=== PATIENT | female | born 1955 | race Two or more races ===

== ENCOUNTER 2016-07-29 10:21 | Emergency (ER) | payer BC, OTHER ==
[~2016-07-29] VITALS: Ht 162.6 cm; Wt 78.0 kg
[~2016-07-29 10:21] MED LIST: ACYC400T84; ESTR0.6256; FLUO20CA38; OMEP10CA2
[2016-07-29 10:30] VITALS: Ht 162.6 cm; Wt 78.0 kg
[2016-07-29] MEDS ORDERED: ONDANSETRON 4 MG INJ IV STA (10:47)
[2016-07-29] MEDS ORDERED: morphine 4 MG/ML VIAL IV STA (10:47)
[2016-07-29] MEDS ORDERED: SOD CHLORIDE 0.9% 500 ML IV STA (10:47)
[2016-07-29 11:17] LABS: ADD SCAN DIFF NO
[2016-07-29 11:19] LABS: BASOPHILS % 0.4 % (0.0-2.0); EOSINOPHILS # 0.2 10^3/ul (0.0-0.5); EOSINOPHILS % 1.8 % (0.0-7.0); HEMOGLOBIN 13.3 g/dl (12.0-16.0); LYMPHOCYTES # 2.8 10^3/ul (0.8-2.9); MEAN CORPUSCULAR HEMOGLOBIN 27.7 pg (29.0-33.0); MEAN CORPUSCULAR HGB CONC 32.4 g/dl (32.0-37.0); MEAN CORPUSCULAR VOLUME 85.2 fl (82.0-101.0); MEAN PLATELET VOLUME 9.8 fl (7.4-10.4); MONOCYTE # 0.5 10^3/ul (0.3-0.9); MONOCYTES % 6.4 % (0.0-11.0); NEUTROPHIL # 4.7 10^3/ul (1.6-7.5); NEUTROPHILS % 57.3 % (39.0-77.0); PLATELET COUNT 306 10^3/UL (140-415); RED BLOOD COUNT 4.81 10^6/ul (4.20-5.40); RED CELL DISTRIBUTION WIDTH 13.6 % (11.5-14.5); WHITE BLOOD COUNT 8.2 10^3/ul (4.8-10.8)
--- NOTE | 2016-07-29 11:50 | RADRPT ---
PROCEDURE: XR Chest. CLINICAL INDICATION: Abdominal Pain TECHNIQUE: Single frontal view of the chest was obtained. COMPARISON: None. FINDINGS: The heart and mediastinum are within normal limits. The lungs are clear. There is no significant pleural effusion or pneumothorax. IMPRESSION: No acute disease. RPTAT: EE Physician Dorothy Date Time Electronically viewed and signed by Jose E Lin Physician on 07/29/2016 11:47 RA/
[2016-07-29 12:01] LABS: ALBUMIN 4.4 g/dl (3.3-4.9); ALBUMIN/GLOBULIN RATIO 1.29; BILIRUBIN,INDIRECT 0.1 mg/dl (0-1.1); BILIRUBIN,TOTAL 0.1 mg/dl (0.2-1.3); CALCIUM 9.8 mg/dl (8.4-10.2); CREATININE 0.82 mg/dl (0.44-1.00); POTASSIUM 4.2 mmol/L (3.5-5.1); TOTAL PROTEIN 7.8 g/dl (6.1-8.1)
--- NOTE | 2016-07-29 12:47 | RADRPT ---
PROCEDURE: CT Abdomen and Pelvis without contrast. CLINICAL INDICATION: Abdominal pain TECHNIQUE: CT of the abdomen and pelvis was performed on a multi-detector scanner without IV contr ast. Coronal and sagittal images were reformatted from the axial data set. One or more of the foll owing dose reduction techniques were used: automated exposure control, adjustment of the mA and/or kV according to patient size, use of iterative reconstruction technique. CTDI = 18.19 mGy. DLP = 11 16.1 mGy-cm. COMPARISON: None. FINDINGS: CT abdomen: The lung bases are clear. The heart size is normal, without pericardial effusion. Coronary arteria l calcifications are noted. The liver is fatty infiltrated, without evidence of focal mass. Gallbl adder, biliary tree, pancreas, spleen, adrenal glands and kidneys are unremarkable. No urolithiasis or obstructive uropathy is identified. Small hiatal hernia is noted. The stomach is otherwise jennifer ssly unremarkable. The aorta is of normal caliber. Aortic atherosclerotic calcifications are noted. There is no retro peritoneal lymphadenopathy. The chloe hepatis region is clear. CT pelvis: No bowel obstruction, free intraperitoneal air or abscess is identified. The patient is status post sigmoid colon resection, with unremarkable appearance of the surgical staple line. The appendix is well visualized and normal. There is no diverticulosis, diverticulitis or colitis. Urinary bladde r is grossly unremarkable. Uterus is surgically absent. No pelvic mass, free fluid or lymphadenopa thy is identified. The surrounding osseous structures are remarkable for mild degenerative spondylosis of the spine. N o osteolytic or osteoblastic lesion is detected. IMPRESSION: 1. Hepatic steatosis is noted. 2. Small hiatal hernia is present. 3. The patient is status post sigmoid colon resection and hysterectomy. 4. Coronary arterial and aortic atherosclerotic calcifications are present. 5. No mass, lymphadenopathy, or focal acute inflammatory process is identified. RPTAT: HH .Nithin Wang MD, MD Date Time Electronically viewed and signed by .Nithin Wang MD, MD on 07/29/2016 12:46 .R/
[2016-07-29 13:21] LABS: ADD UMIC YES; URINE BILIRUBIN (Dip) NEGATIVE (NEGATIVE); URINE BLOOD (Dip) TRACE (NEGATIVE); URINE COLOR LT. YELLOW (YELLOW); URINE GLUCOSE (Dip) NEGATIVE (NEGATIVE); URINE KETONES (Dip) NEGATIVE (NEGATIVE); URINE LEUKOCYTE ESTERASE (Dip) NEGATIVE (NEGATIVE); URINE NITRITE (Dip) NEGATIVE (NEGATIVE); URINE TOTAL PROTEIN (Dip) NEGATIVE (NEGATIVE); URINE UROBILINOGEN (Dip) 0.2 E.U./dL (0.1-1.0)
[2016-07-29 14:04] LABS: BACTERIA,URINE RARE; URINE RBCS 0-2 /HPF (0)
[2016-07-29] MEDS ORDERED: TRAM50TA2 PO (14:45)
--- NOTE | 2016-07-29 14:51 | ERA ---
ER Documentation Chief Complaint Date/Time DATE: 07/29/16 TIME: 14:48 Chief Complaint ap x 5 days HPI This is a 60-year-old female with abdominal pain for 5 days. She said it is in her right lower quadrant. She called Dr. Mejias, who instructed to come to the ER for further evaluation. Mild to moderate and pain. Mild nausea. One episode of vomiting. Nonbilious. Nonbloody. No fevers no chills. No other current issues. ROS All systems reviewed and are negative except as per history of present illness. Medications Home Meds Active Scripts Tramadol HCl (Tramadol HCl) 50 Mg Tablet, 50 MG PO Q4 Y for PAIN, #20 TAB Prov:ASIM PRETTY 07/29/16 Reported Medications Omeprazole* (Prilosec*) 10 Mg Cap 05/27/09 Estrogens,Conjugated* (Premarin*) 0.625 Mg Tablet 05/27/09 Acyclovir* (Zovirax*) 400 Mg Tablet 05/27/09 Fluoxetine Hcl* (Prozac*) 20 Mg Capsule 05/27/09 Allergies Allergies: Coded Allergies: No Known Allergy (Verified Allergy, Mild, 05/27/09) PMhx/Soc History of Surgery: Yes (HYSTERECTOMY,ARTHROSCOPIC SURGERY,TONSILLECTOMY,EYE SUGERY,RECTAL FISSURE) Hx Neurological Disorder: No Hx Respiratory Disorders: No Hx Cardiac Disorders: No Hx Psychiatric Problems: No Hx Miscellaneous Medical Probl: Yes (diverticulitis) Hx Alcohol Use: No Hx Substance Use: No Hx Tobacco Use: No Smoking Status: Never smoker Physical Exam Vitals Vital Signs Date Time Temp Pulse Resp B/P Pulse Ox O2 Delivery O2 Flow Rate FiO2 07/29/16 10:30 99.0 87 18 129/71 99 Physical Exam Const: [] Head: Atraumatic Eyes: Normal Conjunctiva ENT: Normal External Ears, Nose and Mouth. Neck: Full range of motion..~ No meningismus. Resp: Clear to auscultation bilaterally Cardio: Regular rate and rhythm, no murmurs Abd: Soft, non tender, non distended. Normal bowel sounds Skin: No petechiae or rashes Back: No midline or flank tenderness Ext: No cyanosis, or edema Neur: Awake and alert Psych: Normal Mood and Affect Result Diagram: 07/29/16 1105 07/29/16 1105 Results 24 hrs Laboratory Tests Test 07/29/16 11:05 07/29/16 12:35 White Blood Count 8.210^3/ul Red Blood Count 4.8110^6/ul Hemoglobin 13.3g/dl Hematocrit 41.0% Mean Corpuscular Volume 85.2fl Mean Corpuscular Hemoglobin 27.7pg Mean Corpuscular Hemoglobin Concent 32.4g/dl Red Cell Distribution Width 13.6% Platelet Count 41267^3/UL Mean Platelet Volume 9.8fl Neutrophils % 57.3% Lymphocytes % 34.0% Monocytes % 6.4% Eosinophils % 1.8% Basophils % 0.4% Nucleated Red Blood Cells % 0.0/100WBC Neutrophils # 4.710^3/ul Lymphocytes # 2.810^3/ul Monocytes # 0.510^3/ul Eosinophils # 0.210^3/ul Basophils # 0.010^3/ul Nucleated Red Blood Cells # 0.010^3/ul Sodium Level 136mmol/L Potassium Level 4.2mmol/L Chloride Level 104mmol/L Carbon Dioxide Level 26mmol/L Anion Gap 10 Blood Urea Nitrogen 18mg/dl Creatinine 0.82mg/dl Glucose Level 94mg/dl Calcium Level 9.8mg/dl Total Bilirubin 0.1mg/dl Direct Bilirubin 0.00mg/dl Indirect Bilirubin 0.1mg/dl Aspartate Amino Transf (AST/SGOT) 25IU/L Alanine Aminotransferase (ALT/SGPT) 30IU/L Alkaline Phosphatase 84IU/L Total Protein 7.8g/dl Albumin 4.4g/dl Globulin 3.40g/dl Albumin/Globulin Ratio 1.29 Lipase 103U/L Urine Color LT. YELLOW Urine Clarity CLEAR Urine pH 5.5 Urine Specific Robinson <=1.005 Urine Ketones NEGATIVE Urine Nitrite NEGATIVE Urine Bilirubin NEGATIVE Urine Urobilinogen 0.2 E.U./dL Urine Leukocyte Esterase NEGATIVE Urine Microscopic RBC 0-2/HPF Urine Microscopic WBC NONE SEEN/HPF Urine Epithelial Cells OCCASIONAL Urine Bacteria RARE Urine Hemoglobin TRACE Urine Glucose NEGATIVE% Urine Total Protein NEGATIVE Current Medications Medications (Trade) Dose Ordered Sig/Ana Route PRN Reason Start Time Stop Time Status Last Admin Dose Admin Sodium Chloride (NS) 500 ml @ 500 mls/hr Q1H STAT IV 07/29/16 10:47 07/29/16 11:46 DC 07/29/16 11:02 Morphine Sulfate (morphine) 4 mg ONCE STAT IV 07/29/16 10:47 07/29/16 10:48 DC Ondansetron HCl (Zofran Inj) 4 mg ONCE STAT IV 07/29/16 10:47 07/29/16 10:48 DC 07/29/16 11:10 Procedures/MDM Medical decision-makin-year-old female with undifferentiated abdominal pain. CT is negative. Workup is essentially negative. Serial abdominal exams are stable. I spoke to Dr. Mejias, the patient's primary care physician. Patient will be discharged home follow-up with Dr. Mejias tomorrow. She is also been advised to return in 8 hours for serial abdominal exams here in the emergency department. Departure Diagnosis: Primary Impression: Abdominal pain Qualified Code: R10.31 - Right lower quadrant abdominal pain Condition: Stable Patient Instructions: Abdominal Pain Referrals: SERGIO GRIER MD (PCP) ASIM PRETTY July 29, 2016 14:51
[2016-07-29 14:59] VITALS: BP 113/65; PULSE 71; RESP 20; TEMP 97.4
== END 2016-07-29 15:14 | disposition home or self-care (01) ==
LOC: E/R 10:21
DX: R10.31 Right lower quadrant pain (principal); R11.2 Nausea with vomiting, unspecified
CPT/HCPCS: 36415; 71010; 74176; 80053; 81001; 83690; 85025; 87086; 96374; 99285; J2405; J7040; J2270

== ENCOUNTER 2016-08-06 19:50 | Emergency (ER) | payer BC ==
[~2016-08-06] VITALS: Ht 165.1 cm; Wt 84.0 kg
[~2016-08-06 19:50] MED LIST changes: +TRAM50TA2 PO
[2016-08-06 20:05] VITALS: Ht 165.1 cm; Wt 84.0 kg
[2016-08-06 21:03] LABS: URINE BLOOD (Dip) POC 1+ (NEGATIVE)
--- NOTE | 2016-08-06 21:08 | ERA ---
ER Documentation Chief Complaint Date/Time DATE: 08/06/16 TIME: 21:07 Chief Complaint Abdominal pain HPI The patient is a 60-year-old female, presenting to the ER because of persistent , intermittent suprapubic abdominal pain for 1 week. She was seen 1 week ago for similar symptoms, had negative abdominal pelvic CT. she followed-up with her physician Dr. Lawson who started her on Levaquin and Flagyl for the last 2 days. She spoke with her physician Dr. Lawson to the who sent her to the ER for repeat abdominal CT. The abdominal pain is intermittent, only occur when she stands up or walks. She denies fever, chills, chest pain, dyspnea, vomiting, dysuria, diarrhea. She does not smoke nor drink Past medical history: Hepatic steatosis, hiatal hernia, history of diverticulitis, dyslipidemia, depression Past surgical history: Hysterectomy, rectal, sigmoid resection 3 years ago due to diverticulitis ROS All systems reviewed and are negative except as per history of present illness. Medications Home Meds Reported Medications Sertraline Hcl* (Sertraline Hcl*) 50 Mg Tablet, 50 MG PO DAILY, #30 TAB 08/06/16 Levofloxacin* (Levofloxacin*) 500 Mg Tablet, 500 MG PO DAILY, TAB 08/06/16 Metronidazole* (Flagyl*) 500 Mg Tablet, 500 MG PO TID, TAB 08/06/16 Acyclovir* (Acyclovir*) 800 Mg Tablet, 800 MG PO DAILY, TAB 08/06/16 Discontinued Reported Medications Omeprazole* (Prilosec*) 10 Mg Cap 05/27/09 Estrogens,Conjugated* (Premarin*) 0.625 Mg Tablet 05/27/09 Acyclovir* (Zovirax*) 400 Mg Tablet 05/27/09 Fluoxetine Hcl* (Prozac*) 20 Mg Capsule 05/27/09 Discontinued Scripts Tramadol HCl (Tramadol HCl) 50 Mg Tablet, 50 MG PO Q4 Y for PAIN, #20 TAB Prov:ASIM PRETTY 07/29/16 Allergies Allergies: Coded Allergies: Penicillins (Unverified Allergy, Unknown, 08/06/16) Sulfa (Sulfonamide Antibiotics) (Unverified Allergy, Unknown, 08/06/16) PMhx/Soc History of Surgery: Yes (HYSTERECTOMY,ARTHROSCOPIC SURGERY,TONSILLECTOMY,EYE SUGERY,RECTAL FISSURE) Hx Neurological Disorder: No Hx Respiratory Disorders: No Hx Cardiac Disorders: No Hx Psychiatric Problems: No Hx Miscellaneous Medical Probl: Yes (diverticulitis) Hx Alcohol Use: No Hx Substance Use: No Hx Tobacco Use: No Smoking Status: Unknown if ever smoked Physical Exam Vitals Vital Signs Date Time Temp Pulse Resp B/P Pulse Ox O2 Delivery O2 Flow Rate FiO2 08/06/16 23:23 74 17 125/77 98 Room Air 08/06/16 21:16 98.8 70 17 133/73 98 Room Air 08/06/16 20:05 98.8 109 20 135/85 98 Physical Exam Const: No acute distress. Head: Atraumatic. Eyes: Normal Conjunctiva. ENT: Normal External Ears, Nose and Mouth. Neck: Full range of motion. No meningismus. Resp: Clear to auscultation bilaterally. Cardio: Regular rate and rhythm. Abd: Soft, non distended, normal bowel sounds, mild suprapubic tenderness, no rigidity, rebound, CVA tenderness Skin: No petechiae or rashes. Back: No midline or flank tenderness. Ext: No cyanosis, or edema. Neur: Awake and alert. No focal deficit Psych: Normal Mood and Affect. Result Diagram: 08/06/16205708/06/162057 Results 24 hrs Laboratory Tests Test 08/06/16 20:58 08/06/16 21:05 White Blood Count 9.310^3/ul Red Blood Count 5.1410^6/ul Hemoglobin 14.4g/dl Hematocrit 43.4% Mean Corpuscular Volume 84.4fl Mean Corpuscular Hemoglobin 28.0pg Mean Corpuscular Hemoglobin Concent 33.2g/dl Red Cell Distribution Width 13.3% Platelet Count 04075^3/UL Mean Platelet Volume 9.6fl Neutrophils % 52.1% Lymphocytes % 37.9% Monocytes % 8.0% Eosinophils % 1.1% Basophils % 0.6% Nucleated Red Blood Cells % 0.0/100WBC Neutrophils # 4.810^3/ul Lymphocytes # 3.510^3/ul Monocytes # 0.710^3/ul Eosinophils # 0.110^3/ul Basophils # 0.110^3/ul Nucleated Red Blood Cells # 0.010^3/ul Prothrombin Time 12.8Sec Prothrombin Time Ratio 1.0 INR International Normalized Ratio 0.96 Activated Partial Thromboplast Time 28.1Sec Sodium Level 142mmol/L Potassium Level 3.9mmol/L Chloride Level 102mmol/L Carbon Dioxide Level 27mmol/L Anion Gap 17 Blood Urea Nitrogen 15mg/dl Creatinine 1.00mg/dl Glucose Level 121mg/dl Calcium Level 10.6mg/dl Total Bilirubin 0.2mg/dl Direct Bilirubin 0.00mg/dl Indirect Bilirubin 0.2mg/dl Aspartate Amino Transf (AST/SGOT) 29IU/L Alanine Aminotransferase (ALT/SGPT) 35IU/L Alkaline Phosphatase 75IU/L Total Protein 8.1g/dl Albumin 4.9g/dl Globulin 3.20g/dl Albumin/Globulin Ratio 1.53 Lipase 81U/L Bedside Urine pH (LAB) 6.0 Bedside Urine Protein (LAB) Negative Bedside Urine Glucose (UA) Negative Bedside Urine Ketones (LAB) Negative Bedside Urine Blood 1+ Bedside Urine Nitrite (LAB) Negative Bedside Urine Leukocyte Esterase (L Trace Current Medications Medications (Trade) Dose Ordered Sig/Ana Route PRN Reason Start Time Stop Time Status Last Admin Dose Admin IV Flush 10 ml 10 ml STK-MED ONCE .ROUTE 08/06/16 22:35 08/06/16 22:36 DC 08/06/16 22:46 Sodium Chloride (NS) 100 ml @ ud STK-MED ONCE .ROUTE 08/06/16 22:35 08/06/16 22:36 DC 08/06/16 22:46 Iohexol (Omnipaque 300mg/ ml) 150 ml STK-MED ONCE .ROUTE 08/06/16 22:35 08/06/16 22:36 DC 08/06/16 22:46 Procedures/[place] [id number] Radiology Main Line: [phone] DIAGNOSTIC IMAGING REPORT Patient: SARTHAK MARES : 1955 Age: 60 Sex: F MR #: [id number] DOS: 08/06/162113 Ordering MD: CADENCE REA MD Location: E/R Room/Bed: PROCEDURE: CT abdomen and pelvis with contrast. CLINICAL INDICATION: Abdominal pain. TECHNIQUE: IV contrast enhanced CT examination of the abdomen and pelvis, with axial, sagittal and coronal reformatted images. 100 cc Isovue 300 nonionic IV contrast were employed. Automated dose exposure control was employed. CTDI: 17.16 mGy and DLP: 903.20 mGy-cm. COMPARISON: Noncontrast CT examination the abdomen and pelvis dated 07/29/2016. FINDINGS: CT abdomen: The lung bases are clear. The heart size is normal, without pericardial thickening or effusion. The liver demonstrates low post contrast attenuation compatible with fatty infiltration; and otherwise, the liver is normal in size and density without focal mass or intrahepatic biliary dilatation. The spleen is normal in size and homogeneous in density. The stomach is partially collapsed, but is grossly unremarkable. The pancreas as visualized is normal. The gallbladder and biliary tree are unremarkable and there is no evidence for biliary dilatation. The adrenal glands are symmetric and normal. The kidneys are symmetrically unremarkable as well. No renal calculus or obstructive uropathy or mass lesion is seen. The aorta is of normal caliber. No aortic vascular calcifications are present. 13 mm calcified splenic artery aneurysm. There is no retroperitoneal lymphadenopathy. The chloe hepatis region is clear. Mild solid stool scattered throughout the nondilated small bowel, without obstruction. Findings compatible with nonspecific mild small bowel motility disorder. CT pelvis: Mild solid stool scattered throughout the nondilated small bowel, without obstruction. Findings compatible with nonspecific mild small bowel motility disorder. The pelvic organs are normal. The pelvic sidewalls and inguinal regions are clear. The sigmoid colon and rectum are all unremarkable. No mass , lymphadenopathy, or free fluid is seen. No acute inflammation is seen. The appendix is unremarkable. The surrounding osseous structures are remarkable for mild degenerative spondylosis of the spine. No osteolytic or osteoblastic lesion is detected. IMPRESSION: 1. Nonspecific mild small bowel motility disorder, without obstruction. 2. Fatty infiltration of the liver. 3. 13 mm calcified splenic artery aneurysm. RPTAT: [facility] Physician Yanna Date Time Electronically viewed and signed by Physician Yanna on 08/06/2016 23:15 RS/ CC: CADENCE REA MD MEDICAL MAKING DECISION: The patient is a 60-year-old female, presenting with acute abdominal pain of unclear etiology. She declined any pain medication The differential diagnoses considered include but are not limited to cholelithiasis, cholecystitis, cystitis, pancreatitis, hepatitis, gastritis, peptic ulcer disease, gastric ulcer, appendicitis, diverticulitis, cholangitis, choledocholithiasis, partial small bowel obstruction. Consultation: I discussed the patient with Dr. Almeida was on-call for her physician Dr. Lawson at 11:30 PM, she was made aware of the lab, the treatment, the patient condition and agreed to discharge the patient. Departure Diagnosis: Primary Impression: Abdominal pain Condition: Good Comments I discussed the findings with the patient. I advised the patient to follow-up with the primary physician in about tomorrow morning and return if any concern. She declined any pain medication CADENCE REA MD Aug 06, 2016 21:08
[2016-08-06 21:16] VITALS: TEMP 98.8
[2016-08-06 21:20] LABS: ADD SCAN DIFF NO
[2016-08-06 21:25] LABS: BASOPHIL # 0.1 10^3/ul (0.0-0.1); BASOPHILS % 0.6 % (0.0-2.0); EOSINOPHILS # 0.1 10^3/ul (0.0-0.5); EOSINOPHILS % 1.1 % (0.0-7.0); HEMATOCRIT 43.4 % (37.0-47.0); HEMOGLOBIN 14.4 g/dl (12.0-16.0); LYMPHOCYTES # 3.5 10^3/ul (0.8-2.9); LYMPHOCYTES % 37.9 % (15.0-51.0); MEAN CORPUSCULAR HGB CONC 33.2 g/dl (32.0-37.0); MEAN CORPUSCULAR VOLUME 84.4 fl (82.0-101.0); MEAN PLATELET VOLUME 9.6 fl (7.4-10.4); MONOCYTE # 0.7 10^3/ul (0.3-0.9); NEUTROPHIL # 4.8 10^3/ul (1.6-7.5); NEUTROPHILS % 52.1 % (39.0-77.0); PLATELET COUNT 346 10^3/UL (140-415); RED BLOOD COUNT 5.14 10^6/ul (4.20-5.40); RED CELL DISTRIBUTION WIDTH 13.3 % (11.5-14.5); WHITE BLOOD COUNT 9.3 10^3/ul (4.8-10.8)
[2016-08-06 21:29] LABS: INR 0.96; PROTIME 12.8 Sec (12.2-14.2)
[2016-08-06 21:30] LABS: PARTIAL THROMBOPLASTIN TIME 28.1 Sec (25.0-35.0)
[2016-08-06 21:38] LABS: ALBUMIN 4.9 g/dl (3.3-4.9); ALBUMIN/GLOBULIN RATIO 1.53; BILIRUBIN,INDIRECT 0.2 mg/dl (0-1.1); BILIRUBIN,TOTAL 0.2 mg/dl (0.2-1.3); CALCIUM 10.6 mg/dl (8.4-10.2); POTASSIUM 3.9 mmol/L (3.5-5.1); TOTAL PROTEIN 8.1 g/dl (6.1-8.1)
[2016-08-06] MEDS ORDERED: ACYC800T PO (21:51)
[2016-08-06] MEDS ORDERED: LEVO500T10 PO (21:52)
[2016-08-06] MEDS ORDERED: METR500T PO (21:52)
[2016-08-06] MEDS ORDERED: SERT50TA6 PO (21:53)
[2016-08-06] MEDS ORDERED: IOHEXOL 300MG/ML 150 ML BTL ONE (22:35)
[2016-08-06] MEDS ORDERED: SOD CHLORIDE 0.9% 100 ML ONE (22:35)
--- NOTE | 2016-08-06 23:15 | RADRPT ---
PROCEDURE: CT abdomen and pelvis with contrast. CLINICAL INDICATION: Abdominal pain. TECHNIQUE: IV contrast enhanced CT examination of the abdomen and pelvis, with axial, sagittal and coronal reformatted images. 100 cc Isovue 300 nonionic IV contrast were employed. Automated dose e xposure control was employed. CTDI: 17.16 mGy and DLP: 903.20 mGy-cm. COMPARISON: Noncontrast CT examination the abdomen and pelvis dated 07/29/2016. FINDINGS: CT abdomen: The lung bases are clear. The heart size is normal, without pericardial thickening or effusion. The liver demonstrates low post contrast attenuation compatible with fatty infiltration; and otherwi se, the liver is normal in size and density without focal mass or intrahepatic biliary dilatation. The spleen is normal in size and homogeneous in density. The stomach is partially collapsed, but is grossly unremarkable. The pancreas as visualized is normal. The gallbladder and biliary tree are unremarkable and there is no evidence for biliary dilatation. The adrenal glands are symmetric and normal. The kidneys are symmetrically unremarkable as well. No renal calculus or obstructive uropat hy or mass lesion is seen. The aorta is of normal caliber. No aortic vascular calcifications are present. 13 mm calcified sple clarence artery aneurysm. There is no retroperitoneal lymphadenopathy. The chloe hepatis region is wil r. Mild solid stool scattered throughout the nondilated small bowel, without obstruction. Findings com patible with nonspecific mild small bowel motility disorder. CT pelvis: Mild solid stool scattered throughout the nondilated small bowel, without obstruction. Findings com patible with nonspecific mild small bowel motility disorder. The pelvic organs are normal. The pel angelic sidewalls and inguinal regions are clear. The sigmoid colon and rectum are all unremarkable. N o mass, lymphadenopathy, or free fluid is seen. No acute inflammation is seen. The appendix is unr emarkable. The surrounding osseous structures are remarkable for mild degenerative spondylosis of the spine. N o osteolytic or osteoblastic lesion is detected. IMPRESSION: 1. Nonspecific mild small bowel motility disorder, without obstruction. 2. Fatty infiltration of the liver. 3. 13 mm calcified splenic artery aneurysm. RPTAT: [facility] Eileen Higginbotham, Physician Date Time Electronically viewed and signed by Eileen Higginbotham Physician on 08/06/2016 23:15 RS/
[2016-08-06 23:23] VITALS: BP 125/77; PULSE 74; RESP 17
== END 2016-08-06 23:44 | disposition home or self-care (01) ==
LOC: E/R 19:50
DX: R10.30 Lower abdominal pain, unspecified (principal); R40.2142 Coma scale, eyes open, spontaneous, at arrival to emergency department; R40.2252 Coma scale, best verbal response, oriented, at arrival to emergency department; R40.2362 Coma scale, best motor response, obeys commands, at arrival to emergency department
CPT/HCPCS: 36415; 74177; 80053; 81003; 83690; 85025; 85610; 85730; 99285; Q9967